=== PATIENT | female | born 1980 | race Caucasian/White ===

== ENCOUNTER 2017-12-10 22:52 | Emergency (ER) | payer MEDICAID ==
--- NOTE | 2017-12-10 22:59 | EDPHY ---
H & P HPI/ROS: HPI CHIEF COMPLAINT: Alcohol Intoxication HISTORY OF PRESENT ILLNESS: This patient very pleasant 37-year-old female, she presents emergency room by EMS for acute alcohol intoxication. She was at a local bar called the "[employer]" apparently she drank multiple beverages there and got too intoxicated. EMS was called and evaluate her she was unable to ambulate so they brought her here to the emergency room. She has no complaints. Past Medical History: Denies medical history Past Surgical History: Denies surgical history Social History: Alcohol this evening. Denies illicit drugs. Family History: Noncontributory ROS REVIEW OF SYSTEMS: A comprehensive 10 point review of systems is otherwise negative aside from elements mentioned in the history of present illness. Exam Constitutional Intoxicated, triage nursing summary reviewed, vital signs reviewed, Sleepy, smells of alcohol Eyes normal conjunctivae and sclera, horizontal beating nystagmus consistent acute alcohol intoxication, otherwise pupils equal and react to light HENT normal inspection, atraumatic, moist mucus membranes, no epistaxis, neck supple/ no meningismus, no raccoon eyes. Respiratory clear to auscultation bilaterally, normal breath sounds, no respiratory distress, no wheezing. Cardiovascular rate normal, regular rhythm, no murmur, no edema, distal pulses normal. Gastrointestinal soft, non-tender, no rebound, no guarding, normal bowel sounds, no distension, no pulsatile mass. Genitourinary no CVA tenderness. Musculoskeletal no midline vertebral tenderness, full range of motion, no calf swelling, no tenderness of extremities, no meningismus, good pulses, neurovascularly intact. Skin pink, warm, & dry, no rash, skin atraumatic. Neurologic sleepy, intoxicated with alcohol,, alert and oriented x 3, AAOx3, moves all 4 extremities equally, motor intact, sensory intact, CN II-XII intact , , normal vision, normal speech. Psychiatric normal mood/affect. Heme/Lymph/Immune no lymphadenopathy. Differential Diagnosis: Includes but is not limited to in a particular order acute alcohol intoxication, alcohol abuse, dehydration, electrolyte abnormality , nausea vomiting from acute alcohol intoxication Medical Decision Making: Plan for this patient monitor for sobriety. Monitor for worsening of condition. Breath alcohol. Re-evaluation: Breath alcohol 228. TIME 2320 [id number]: Patient is more clinically sobernow. Ambulated with a stable gait. Answers my questions appropriately. Plan for this patient if she can find a safe ride home I allowed to be discharged from the emergency room. Source: Patient, EMS Constitutional: Initial Vital Signs Temperature (C) 36.5 C 12/10/17 22:55 Heart Rate 120 H 12/10/17 22:55 Respiratory Rate 18 12/10/17 22:55 Blood Pressure 122/82 H 12/10/17 22:55 O2 Sat (%) 94 12/10/17 22:55 O2 Delivery Mode Room Air Allergies/Adverse Reactions: latex Allergy (Verified 12/10/17 23:12) Home Medications: Medication Instructions Recorded NK [No Known Home Meds] 12/10/17 Departure - Departure Disposition: Home, Routine, Self-Care Clinical Impression: Alcoholic intoxication Qualifiers: Complication of substance-induced condition: uncomplicated Qualified Code(s): F10.920 - Alcohol use, unspecified with intoxication, uncomplicated Condition: Good Instructions: Alcohol Intoxication (ED) Referrals: Patient,NotPresent [Primary Care Provider] - As per Instructions
[2017-12-10 23:12] VITALS: TEMP 97.7
[2017-12-11 00:31] VITALS: BP 133/87; PULSE 106; RESP 15; O2SAT 91
== END 2017-12-11 00:29 | disposition home or self-care (01) ==
LOC: EDUNIT#
DX: F10.920 Alcohol use, unspecified with intoxication, uncomplicated (principal); Z91.040 Latex allergy status

== ENCOUNTER 2019-02-08 01:03 | Emergency (ER) | payer MEDICAID ==
--- NOTE | 2019-02-08 01:14 | EDPHY ---
H & P Stated Complaint: EtOH Time Seen by Provider: 02/08/19 01:13 HPI/ROS: HPI CHIEF COMPLAINT: Alcohol Intoxication HISTORY OF PRESENT ILLNESS: 38-year-old female presents emergency room for acute alcohol intoxication. She was out drinking with friends this evening. Is reported she consumed a large amount of alcohol. Multiple liquor drinks. She was unable to walk. No trauma reported 911 was called she was unable to walk and highly intoxicated with alcohol and was transferred here to the emergency room Past Medical History: Unknown Past Surgical History: Unknown Social History: Alcohol this evening large amount per EMS. Family History: Unknown ROS REVIEW OF SYSTEMS: Limited due to acute alcohol intoxication Exam Constitutional Intoxicated, triage nursing summary reviewed, vital signs reviewed, Sleepy, smells of alcohol Eyes normal conjunctivae and sclera, horizontal beating nystagmus consistent acute alcohol intoxication, otherwise pupils equal and react to light HENT normal inspection, atraumatic, moist mucus membranes, no epistaxis, neck supple/ no meningismus, no raccoon eyes. Respiratory clear to auscultation bilaterally, normal breath sounds, no respiratory distress, no wheezing. Cardiovascular rate normal, regular rhythm, no murmur, no edema, distal pulses normal. Gastrointestinal soft, non-tender, no rebound, no guarding, normal bowel sounds, no distension, no pulsatile mass. Genitourinary no CVA tenderness. Musculoskeletal no midline vertebral tenderness, full range of motion, no calf swelling, no tenderness of extremities, no meningismus, good pulses, neurovascularly intact. Skin pink, warm, & dry, no rash, skin atraumatic. Neurologic sleepy, intoxicated with alcohol,, alert and oriented x 3, AAOx3, moves all 4 extremities equally, motor intact, sensory intact, CN II-XII intact , , normal vision, normal speech. Psychiatric normal mood/affect. Heme/Lymph/Immune no lymphadenopathy. Differential Diagnosis: Includes but is not limited to in a particular order acute alcohol intoxication, alcohol abuse, dehydration, electrolyte abnormality , nausea vomiting from acute alcohol intoxication Medical Decision Making: Plan for this patient breath alcohol, monitor for worsening condition monitor for sobriety. Re-evaluation: Serum alcohol level 360 [id number] 0640: Patient is now much more sober. She is on a detox hold. Plan for discharged from the emergency room to [facility] for further sobriety. Source: Patient, EMS - Personal History Current Tetanus/Diphtheria Vaccine: Unsure Current Tetanus Diphtheria and Acellular Pertussis (TDAP): Unsure - Medical/Surgical History Hx Asthma: No Hx Chronic Respiratory Disease: No Hx Diabetes: No Hx Cardiac Disease: No Hx Renal Disease: No Hx Cirrhosis: No Hx Alcoholism: No Hx HIV/AIDS: No Hx Splenectomy or Spleen Trauma: No Other PMH: DENIES - Social History Smoking Status: Never smoked Constitutional: Initial Vital Signs Heart Rate 120 H 02/08/19 01:06 Respiratory Rate 16 02/08/19 01:06 Blood Pressure 143/99 H 02/08/19 01:06 O2 Sat (%) 92 02/08/19 01:06 O2 Delivery Mode Room Air O2 (L/minute) 2 Allergies/Adverse Reactions: latex Allergy (Verified 12/10/17 23:12) Home Medications: Medication Instructions Recorded NK [No Known Home Meds] 12/10/17 Medical Decision Making - Data Points Laboratory Results: Laboratory Results 02/08/19 01:40 02/08/19 01:40 02/08/19 02/08/19 01:40 01:40 WBC 13.30 10^3/uL H 10^3/uL (3.80-9.50) RBC 5.12 10^6/uL 10^6/uL (4.18-5.33) Hgb 15.4 g/dL g/dL (12.6-16.3) Hct 45.6 % % (38.0-47.0) MCV 89.1 fL fL (81.5-99.8) MCH 30.1 pg pg (27.9-34.1) MCHC 33.8 g/dL g/dL (32.4-36.7) RDW 12.3 % % (11.5-15.2) Plt Count 378 10^3/uL 10^3/uL (150-400) MPV 9.5 fL fL (8.7-11.7) Neut % (Auto) 56.6 % % (39.3-74.2) Lymph % (Auto) 36.1 % % (15.0-45.0) [place] % (Auto) 5.2 % % (4.5-13.0) Eos % (Auto) 0.3 % L % (0.6-7.6) Baso % (Auto) 0.5 % % (0.3-1.7) Nucleat RBC Rel Count 0.0 % % (0.0-0.2) Absolute Neuts (auto) 7.53 10^3/uL H 10^3/uL (1.70-6.50) Absolute Lymphs (auto) 4.80 10^3/uL H 10^3/uL (1.00-3.00) Absolute Monos (auto) 0.69 10^3/uL 10^3/uL (0.30-0.80) Absolute Eos (auto) 0.04 10^3/uL 10^3/uL (0.03-0.40) Absolute Basos (auto) 0.07 10^3/uL 10^3/uL (0.02-0.10) Absolute Nucleated RBC 0.00 10^3/uL 10^3/uL (0-0.01) Immature Gran % 1.3 % H % (0.0-1.1) Immature Gran # 0.17 10^3/uL H 10^3/uL (0.00-0.10) Sodium 141 mEq/L mEq/L (135-145) Potassium 4.7 mEq/L mEq/L (3.5-5.2) Chloride 109 mEq/L mEq/L (97-110) Carbon Dioxide 15 mEq/l L mEq/l (22-31) Anion Gap 17 mEq/L H mEq/L (6-14) BUN 11 mg/dL mg/dL (7-23) Creatinine 0.7 mg/dL mg/dL (0.6-1.0) Estimated GFR > 60 Glucose 121 mg/dL H mg/dL (70-100) Calcium 9.9 mg/dL mg/dL (8.5-10.4) Specimen Hemolysis 111 Ethyl Alcohol 360 mg/dL H mg/dL (0-10) Medications Given: Discontinued Medications Sodium Chloride (Ns) 1,000 mls @ 0 mls/hr IV EDNOW ONE; Wide Open PRN Reason: Protocol Stop: 02/08/19 01:29 Last Admin: 02/08/19 01:40 Dose: 1,000 mls Departure - Departure Disposition: Home, Routine, Self-Care Clinical Impression: Alcoholic intoxication Qualifiers: Complication of substance-induced condition: uncomplicated Qualified Code(s): F10.920 - Alcohol use, unspecified with intoxication, uncomplicated Condition: Good Instructions: Alcohol Intoxication (ED), Abuse of Alcohol (ED) Referrals: Patient,NotPresent [Unknown] - As per Instructions
[2019-02-08] MEDS ORDERED: NS 1,000 ML IV ONE (01:28)
[2019-02-08 01:54] LABS: PLATELET COUNT 378 10^3/uL (150-400)
[2019-02-08 06:44] VITALS: BP 113/77
== END 2019-02-08 07:02 | disposition home or self-care (01) ==
LOC: EDUNIT# → EDSEX
DX: F10.920 Alcohol use, unspecified with intoxication, uncomplicated (principal); E86.9 Volume depletion, unspecified
CPT/HCPCS: G0480